=== PATIENT | male | born 1950 | race Caucasian/White ===

== ENCOUNTER 2018-10-14 08:26 | Day surgery (SDC) | payer MEDICARE, BC ==
[2018-10-14] MEDS ORDERED: MIDAZOLAM 2 MG/2 ML SOL ONE (09:20)
[2018-10-14] MEDS ORDERED: FENTANYL 100MCG/2ML SOL ONE (09:20)
[2018-10-14] MEDS ORDERED: BUPIVACAINE HCL 0.25% MPF 30 ML SOL INFIL ONE (09:31)
[2018-10-14] MEDS ORDERED: DEXAMETHASONE SOD PHOS PF 10 MG/ML SOL IJ ONE (09:31)
[2018-10-14 09:41] VITALS: RESP 16
[2018-10-14 10:15] VITALS: BP 130/94; PULSE 75; TEMP 97.4; O2SAT 95
== END 2018-10-14 10:25 | disposition home or self-care (01) | DRG 74 ==
LOC: SURG 08:26
PROVIDERS: ATTEND Nurse Anesthetist, Certified Registered
DX: M54.12 Radiculopathy, cervical region (principal); M99.51 Intervertebral disc stenosis of neural canal of cervical region; E11.9 Type 2 diabetes mellitus without complications; Z79.4 Long term (current) use of insulin
CPT/HCPCS: 82962; J2250; J3010; J1100